=== PATIENT | male | born 1995 | race Caucasian/White ===

== ENCOUNTER 2021-12-22 13:07 | Outpatient (CLI) | payer BC, SELFPAY ==
--- NOTE | ~2021-12-22 | CT_ITS ---
EXAMINATION: CT abdomen pelvis wo con DATE: 12/22/2021 14:28 INDICATION: Chronic prostatitis TECHNIQUE: Computed tomography (CT) of the abdomen and pelvis was performed without intravenous contr ast. Automated exposure control and iterative reconstruction technique were employed. Exam dose: 523 .58 mGy-cm total exam DLP. COMPARISON: December 22, 2021 scrotal ultrasound FINDINGS: Normal heart size. No pericardial or pleural effusion. The lung bases are clear. The liver, gallbladder, bile ducts, spleen, pancreas, pancreatic duct, and adrenal glands and kidneys are unremarkable. No ureteral calculus or hydroureteronephrosis. The urinary bladder, prostate gland and seminal vesicles appear normal. Normal caliber of the abdominal aorta. No intraperitoneal or retroperitoneal or pelvic mass lesion or adenopathy or ascites. Normal appendix. No bowel obstruction, bowel wall thickening, pneumatosis or intraperitoneal free air . 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 The included skeletal structures are otherwise unrem arkable. 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 Reviewed, dictated and finalized at [facility]. 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
--- NOTE | ~2021-12-22 | US_ITS ---
US scrotum doppler DATE: 12/22/2021 14:27 INDICATION: Chronic prostatitis, chronic epididymitis for 2 months TECHNIQUE: Real-time and color flow imaging and Doppler analysis of the scrotal contents COMPARISON: None FINDINGS: The right testicle measures 5.6 x 2.9 x 3.4 cm. The left testicle measures 5.6 x 2.7 x 3.8 cm. No testicular mass lesion is detected on either side. There is homogeneous echotexture of the testicles was symmetric color flow signal. There is no eviden ce of testicular torsion or testicular mass lesion. There is a 6.5 x 5 mm cyst of the head of the left epididymis. The epididymis is otherwise unremarkab le bilaterally. No varicose veins measuring 3 mm or greater are detected on either side. IMPRESSION: 6.5 x 5 mm cyst of the head of the left epididymis; otherwise unremarkable examination Reviewed, dictated and finalized at [facility]. Reviewed, dictated and finalized at [facility]. E FLEX DEVELOPER IMPRESSION: 6.5 x 5 mm cyst of the head of the left epididymis; otherwise unrem arkable examination
== END 2021-12-22 13:08 | disposition home or self-care (01) ==
PROVIDERS: Visit Provider Urology
DX: N41.1 Chronic prostatitis (principal); M43.28 Fusion of spine, sacral and sacrococcygeal region; N50.3 Cyst of epididymis
CPT/HCPCS: 74176; 76870; 93976

== ENCOUNTER → 2023-02-15 13:22 | Outpatient (CLI) | payer SELFPAY ==
--- NOTE | ~2023-02-15 | US_ITS ---
EXAMINATION: US scrotum doppler DATE: 02/15/2023 13:52 INDICATION: Epididymitis and orchitis TECHNIQUE: Testicular sonogram utilizing grayscale and Doppler COMPARISON: 12/22/2021 FINDINGS: The right testis measures 5.2 x 2.7 x 3.5 cm. The left testis measures 5.1 x 2.4 x 3.3 cm. There is normal vascular flow to both testes. The right epididymis is normal with normal vascular shahbaz w. The left epididymis is normal with normal vascular flow. There is no varicocele or hydrocele. IMPRESSION: 1. No sonographic correlate for the patient's symptoms. Reviewed, dictated and finalized at location [facility].
== END ==
PROVIDERS: PCP Nurse Practitioner; Visit Provider Nurse Practitioner
DX: N45.3 Epididymo-orchitis (principal)
CPT/HCPCS: 76870; 93976